=== PATIENT | male | born 1970 | race Caucasian/White ===

== ENCOUNTER 2020-10-03 18:55 | Emergency (ER) | payer SELFPAY ==
[2020-10-03 19:28] LABS: #Lymphocytes 1.5 thou/uL (1.20-3.40); #Monocytes 0.7 thou/uL (0.11-0.59); #Neutrophils 4.7 thou/uL (1.40-6.50); %Basophils 0.7 % (0.0-1.0); %Eosinophils 0.2 % (0.0-10.0); %Lymphocytes 21.3 % (21.0-51.0); %Monocytes 10.3 % (0.0-10.0); %Neutrophils 67.6 % (42.0-75.0); Mean Corpuscular HGB CONC 34.3 g/dL (32.0-36.0); Mean Corpuscular Hemoglobin 29.7 pg (27.0-31.0); Mean Corpuscular Volume 86.7 fL (78.0-98.0); Mean Platelet Volume 7.7 fL (7.4-10.4); Platelet Count 209 thou/uL (130-400); Red Blood Cell (RBC) Count 5.71 mill/uL (4.70-6.10); White Blood Cell (WBC) Count 6.9 thou/uL (4.8-10.8)
[2020-10-03] MEDS ORDERED: Dexamethasone 10 MG/ML VIAL ONE (19:29)
[2020-10-03 19:33] LABS: INR-International Normal Ratio 0.9; Prothrombin Time 12.1 sec (12.0-14.7)
[2020-10-03 19:34] LABS: PTT 35.2 sec (22.9-36.1)
[2020-10-03 19:54] LABS: ALT (SGPT) 37 U/L (8-55); AST (SGOT) 29 U/L (5-34); Albumin 3.9 g/dL (3.5-5.0); Alkaline Phosphatase 76 U/L (40-110); Anion Gap 16 mmol/L (10-20); BUN (Urea Nitrogen) 10 mg/dL (8.9-20.6); Bilirubin, Total 0.6 mg/dL (0.2-1.2); Calc. Creatinine Clearance 0 mL/min (70-130); Calcium 8.5 mg/dL (7.8-10.44); Carbon Dioxide 22 mmol/L (22-29); Chloride 101 mmol/L (98-107); Globulin 3.8 g/dL (2.4-3.5); Glucose 128 mg/dL (70-105); Potassium 4.1 mmol/L (3.5-5.1); Protein, Total 7.7 g/dL (6.0-8.3); Sodium 135 mmol/L (136-145)
--- NOTE | 2020-10-03 20:08 | RAD ---
EXAM: CHEST ONE VIEW HISTORY: Dyspnea. Covid positive on 09/30/2020. COMPARISON: None FINDINGS: The cardiac silhouette and pulmonary vasculature are within normal limits. Mild elevation right hemid iaphragm is present. No consolidation or pleural fluid is identified. The osseous structures are intact. IMPRESSION: 1. No acute cardiopulmonary process. Chest radiographs exhibit low sensitivity for evaluation of subt le groundglass opacities which can be seen with Covid pneumonia. 2. Mild elevation right hemidiaphragm.
== END 2020-10-03 20:59 | disposition home or self-care (01) ==
LOC: ERS 18:55
DX: U07.1 COVID-19 (principal); E86.0 Dehydration
CPT/HCPCS: 71045; 80053; 82550; 83605; 83880; 84484; 85025; 85379; 85610; 85730; 87040; 93005; 94760; 96374; J1100